=== PATIENT | male | born 1975 | race Caucasian/White ===

== ENCOUNTER 2019-01-16 15:47 | Emergency (ER) | payer OTHER ==
[~2019-01-16] VITALS: Ht 170.2 cm; Wt 39.0 kg
[2019-01-16 16:34] LABS: BILIRUBIN 1+ (NEGATIVE); BLOOD TRACE-INTACT (NEGATIVE); CLARITY CLEAR (CLEAR); COLOR YELLOW (YELLOW); GLUCOSE NEGATIVE (NEGATIVE); KETONE 3+ (NEGATIVE); LEUKO ESTERASE NEGATIVE (NEGATIVE); NITRITE NEGATIVE (NEGATIVE); SPECIFIC GRAVITY 1.025 (1.005-1.030); UROBILINOGEN 0.2 E.U./dl (0.2-1.0)
[2019-01-16 16:57] LABS: BASO % 0.1 % (0.0-1.0); EOS % 0.1 % (1.0-4.0); HEMATOCRIT 49.5 % (42.0-52.0); HEMOGLOBIN 16.5 g/dl (14.0-18.0); LYMPH # 1.2 10*3/uL (1.3-4.4); LYMPH % 12.4 % (27.0-41.0); MEAN CELL VOLUME 92.7 fl (80.0-94.0); MEAN CORPUSCULAR HGB 30.9 pg (27.0-31.0); MEAN CORPUSCULAR HGB CONC 33.3 g/dl (33.0-37.0); MEAN PLATELET VOLUME 11.7 fl (9.6-12.3); MONO # 1.1 10*3/uL (0.1-1.0); MONO % 11.2 % (3.0-9.0); NEUT # 7.2 10*3/uL (2.3-7.9); PLATELET COUNT AUTOMATED 243 10*3/uL (130-400); RED BLOOD COUNT 5.34 10*6/uL (4.50-5.90); RED CELL DISTRI WIDTH 11.9 % (0-14.5); WHITE BLOOD COUNT 9.5 10*3/uL (4.8-10.8)
[2019-01-16 17:02] LABS: BACTERIA TRACE; MUCOUS 2+; RBC 0-2 rbc/hpf (0-2); WBC 0-2 wbc/hpf (0-5)
[2019-01-16 17:08] LABS: INTERNATIONAL NORM RATIO 0.9 (2.0-3.5)
[2019-01-16 17:12] LABS: ALBUMIN 3.4 gm/dl (3.1-4.5); ALKALINE PHOSPHATASE 73 U/L (45-117); BUN 21 mg/dl (7-24); CHLORIDE 97 mmol/L (98-107); CREATININE 0.95 mg/dL (0.70-1.30); LIPASE 174 U/L (73-393); POTASSIUM 4.2 mmol/L (3.5-5.1); SGOT/AST 20 IU/L (3-35); SGPT/ALT 20 U/L (12-78); SODIUM 134 mmol/L (136-145)
[2019-01-16 17:22] LABS: TROPONIN I < 0.015 ng/ml (<0.045)
[2019-01-16] MEDS ORDERED: FLAGYL500 MG PO ×2 (17:43→18:09)
[2019-01-16] MEDS ORDERED: CIPRO500 MG PO ×2 (17:43→18:09)
== END 2019-01-16 17:48 | disposition home or self-care (01) ==
LOC: ED 15:47
PROVIDERS: Internal Medicine
DX: K52.9 Noninfective gastroenteritis and colitis, unspecified (principal); R10.12 Left upper quadrant pain

== ENCOUNTER 2019-03-27 14:35 | Emergency (ER) | payer OTHER ==
[~2019-03-27] VITALS: Ht 167.6 cm; Wt 42.2 kg
[~2019-03-27 14:35] MED LIST: CIPRO500 MG PO; FLAGYL500 MG PO
[2019-03-27 15:53] LABS: BASO % 0.1 % (0.0-1.0); EOS % 0.1 % (1.0-4.0); HEMATOCRIT 40.1 % (42.0-52.0); HEMOGLOBIN 13.2 g/dl (14.0-18.0); LYMPH # 0.6 10*3/uL (1.3-4.4); LYMPH % 8.5 % (27.0-41.0); MEAN CELL VOLUME 93.5 fl (80.0-94.0); MEAN CORPUSCULAR HGB 30.8 pg (27.0-31.0); MEAN CORPUSCULAR HGB CONC 32.9 g/dl (33.0-37.0); MEAN PLATELET VOLUME 10.4 fl (9.6-12.3); MONO # 0.7 10*3/uL (0.1-1.0); MONO % 10.1 % (3.0-9.0); NEUT # 5.7 10*3/uL (2.3-7.9); NEUT % 80.9 % (47.0-73.0); PLATELET COUNT AUTOMATED 183 10*3/uL (130-400); RED BLOOD COUNT 4.29 10*6/uL (4.50-5.90); RED CELL DISTRI WIDTH 12.1 % (0-14.5)
[2019-03-27 16:09] LABS: ALBUMIN 3.5 gm/dl (3.1-4.5); ALKALINE PHOSPHATASE 71 U/L (45-117); BUN 9 mg/dl (7-24); CHLORIDE 100 mmol/L (98-107); CREATININE 0.81 mg/dL (0.70-1.30); POTASSIUM 4.1 mmol/L (3.5-5.1); SGOT/AST 24 IU/L (3-35); SGPT/ALT 27 U/L (12-78); SODIUM 134 mmol/L (136-145)
[2019-03-27] MEDS ORDERED: TAMIFLU 75MG CA75 MG PO (16:41)
[2019-03-27] MEDS ORDERED: TYLENOL325 M1 PO (16:41)
== END 2019-03-27 16:48 | disposition home or self-care (01) ==
LOC: ED 14:35
PROVIDERS: Emergency Medicine
DX: R91.1 Solitary pulmonary nodule (principal); B34.9 Viral infection, unspecified

== ENCOUNTER → 2019-09-09 | Outpatient (CLI) | payer BC ==
[~2019-09-09] MED LIST changes: +TAMIFLU 75MG CA75 MG PO; +TYLENOL325 M1 PO
== END | disposition home or self-care (01) ==
LOC: CT 13:00
DX: R91.8 Other nonspecific abnormal finding of lung field (principal)